=== PATIENT | female | born 2000 | race Caucasian/White ===

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

== ENCOUNTER → 2020-01-10 | Outpatient (CLI) | payer MEDICAID ==
--- NOTE | 2020-01-10 12:17 | Diagnostic Imaging Report ---
INDICATION: Follow-up 4 chamber heart. TECHNIQUE: Multiple real-time grayscale images were obtained over the gravid uterus. COMPARISON: 12/27/2019. FINDINGS: There is a single live fetus in a cephalic presentation. heart rate was recorded at 152 bpm. Placenta is posterior. Amniotic fluid volume appears normal. Limited survey demonstrates a four-chamber heart view on today's study which is unremarkable. IMPRESSION: Unremarkable limited study demonstrating the four-chamber heart view. Dictated by: Dictated on workstation # [id number]
== END ==
LOC: RAD 09:54
PROVIDERS: ATTEND Family Medicine
DX: Z36.2 Encounter for other antenatal screening follow-up (principal)
CPT/HCPCS: 76816

== ENCOUNTER 2020-04-28 18:49 | Inpatient (IN) | payer MEDICAID ==
[~2020-04-28] VITALS: Ht 167.7 cm; Wt 136.3 kg
--- NOTE | 2020-04-28 18:45 | NUR ---
ALESSANDRO DONIS presented to unit from home, accompanied by support person, with c/o INDUCTION. ALESSANDRO DONIS weighed, gowned, voided, and to bed. EFHM and TOCO applied, VS taken. ALESSANDRO DONIS oriented to bed controls, call light, TV, heat, and A/C controls.
[~2020-04-28 18:49] MED LIST changes: -CETI10TA21 PO; +CETI10TA49 PO
[2020-04-28] MEDS ORDERED: MEPIVACAINE (CARBOCAINE) 2% 50 ML VIAL INJ PRN (19:00)
[2020-04-28] MEDS ORDERED: D5 LR IV SOLUTION 1,000 ML IV SCH (19:00)
[2020-04-28] MEDS ORDERED: D5 LR IV SOLUTION 1,000 ML IV ONE (19:40)
[2020-04-28 19:50] VITALS: BP 126/75
[2020-04-28] MEDS ORDERED: AMPICILLIN FOR IV USE 2,000 MG in WATER (STERILE) FOR INJECTION 14.8 ML IV SCH (20:00)
[2020-04-28] MEDS ORDERED: WATER (STERILE) FOR INJECTION 20 ML ONE (20:01)
[2020-04-28] MEDS ORDERED: AMPICILLIN 2,000 MG/14.8 ML (IV USE) ONE (20:01)
[2020-04-28 20:06] LABS: BASOPHILS % (AUTO) 0 % (0-10); EOSINOPHILS # (AUTO) 0.1 10^3/uL (0.0-0.3); EOSINOPHILS % (AUTO) 1 % (0-10); HEMATOCRIT 38 % (35-52); HEMOGLOBIN 12.8 g/dL (11.5-16.0); LYMPHOCYTES # (AUTO) 2.6 10^3/uL (1.0-4.0); LYMPHOCYTES % (AUTO) 25 % (12-44); MEAN CORPUSCULAR HEMOGLOBIN 30 pg (25-34); MEAN CORPUSCULAR HGB CONC 34 g/dL (32-36); MEAN CORPUSCULAR VOLUME 87 fL (80-99); MEAN PLATELET VOLUME 10.4 fL (9.0-12.2); MONOCYTES # (AUTO) 0.9 10^3/uL (0.0-1.0); MONOCYTES % (AUTO) 9 % (0-12); NEUTROPHILS # (AUTO) 6.8 10^3/uL (1.8-7.8); NEUTROPHILS % (AUTO) 65 % (42-75); PLATELET COUNT 218 10^3/uL (130-400); WHITE BLOOD COUNT 10.5 10^3/uL (4.3-11.0)
[2020-04-28] MEDS: AMPICILLIN FOR IV USE 1,000 MG in WATER (STERILE) FOR INJECTION 7.4 ML IV SCH (20:09)
[2020-04-28] MEDS ORDERED: LACTATED RINGERS 1,000 ML IV SCH (20:53)
[2020-04-28] MEDS ORDERED: MISOPROSTOL 100 MCG (CYTOTEC) TAB ONE (20:55)
[2020-04-28] MEDS ORDERED: MISOPROSTOL 100 MCG (CYTOTEC) TAB PO ONE (21:00)
[2020-04-28 21:30] VITALS: BP 118/75
[2020-04-28] MEDS ORDERED: VALA500T7 PO (21:35)
[2020-04-28] MEDS ORDERED: PREN-142 PO (21:36)
[2020-04-28] MEDS ORDERED: CATHETER FLUSH 10 ML SYR IV SCH (22:00)
[2020-04-29] VITALS (29 sets, daily range): BP systolic 100–171; BP diastolic 52–89
[2020-04-29] MEDS: AMPICILLIN FOR IV USE 1,000 MG in WATER (STERILE) FOR INJECTION 7.4 ML IV SCH (00:29)
[2020-04-29] MEDS ORDERED: MISOPROSTOL 100 MCG (CYTOTEC) TAB PO SCH (01:00)
[2020-04-29] MEDS: LACTATED RINGERS 1,000 ML IV ONE ×2 (01:05→03:31)
[2020-04-29] MEDS ORDERED: fentaNYL 2 mcg/ml BUPIVA 0.125 100 ML ONE (01:09)
[2020-04-29] MEDS ORDERED: BUPIVACAINE 0.25% 30 ML (SENSORCAINE) VIAL ONE (01:50)
[2020-04-29] MEDS ORDERED: fentaNYL INJECTION 100 MCG/2 ML AMP ONE (01:50)
[2020-04-29] MEDS ORDERED: fentaNYL 2 mcg/ml BUPIVA 0.125 100 ML IV SCH (01:54)
[2020-04-29] MEDS ORDERED: NALOXONE 0.4 MG/ML 1 ML (NARCAN) VIAL IV PRN (02:00)
[2020-04-29] MEDS ORDERED: CATHETER FLUSH 10 ML SYR IV PRN (02:00)
--- NOTE | 2020-04-29 03:29 | History & Physical-OB ---
OB - Chief Complaint & HPI Date/Time Date of Admission: Date of Admission: Apr 28, 2020 at 18:49 Date seen by a Provider: Apr 29, 2020 Time Seen by a Provider: 03:20 Chief Complaint/History OB-Reason for Admission/Chief: Induction of Labor Hx : 2 Hx Para: 1 Expected Date of Delivery: May 06, 2020 Gestational Age in Weeks: 38 Gestational Age in Days: 6 Admission Nurse Assessment Rev: Yes History of Labs GBS positive Allergies and Home Medications Allergies Coded Allergies: No Known Drug Allergies (Unverified , 04/01/15) Home Medications Vit No.124/Iron/FA 1 Each Tablet, 1 EACH PO DAILY, (Reported) Valacyclovir HCl 500 Mg Tablet, 500 MG PO DAILY, (Reported) Patient Home Medication List Home Medication List Reviewed: Yes OB - History Hx of Present Care: Yes Ultrasounds: Normal mid trimester US Obstetrical Complications: None Medical Complications: None Delivery History Hx Blood Disorders: No Adverse Rxn to Tranfusion: No Patient Past Medical History No chronic medical problems Social History/Family History HIV/AIDS: No Recent Infectious Disease Expo: No Sexually Transmitted Disease: Yes Alcohol Use: Denies Use Recreational Drug Use: No 2nd Hand Smoke Exposure: Yes Immunizations Tetanus Booster (TDap): More than 5yrs OB - Admission Exam Physical Exam Vitals: Vital Signs 04/28/20 04/29/20 04/29/20 04/29/20 19:50 00:30 02:10 02:15 Temp 36.6 Pulse 106 Resp 18 B/P (MAP) 138/80 (99) Pulse Ox 100 O2 Delivery Room Air HEENT: Moist Membranes Heart: Rhythm Normal Lungs: Clear Labs Laboratory Tests Test 04/28/20 19:30 04/28/20 19:50 Range/Units White Blood Count 10.5 4.3-11.0 10^3/uL Red Blood Count 4.34 3.80-5.11 10^6/uL Hemoglobin 12.8 11.5-16.0 g/dL Hematocrit 38 35-52 % Mean Corpuscular Volume 87 80-99 fL Mean Corpuscular Hemoglobin 30 25-34 pg Mean Corpuscular Hemoglobin Concent 34 32-36 g/dL Red Cell Distribution Width 13.6 10.0-14.5 % Platelet Count 218 130-400 10^3/uL Mean Platelet Volume 10.4 9.0-12.2 fL Immature Granulocyte % (Auto) 0 % Neutrophils (%) (Auto) 65 42-75 % Lymphocytes (%) (Auto) 25 12-44 % Monocytes (%) (Auto) 9 0-12 % Eosinophils (%) (Auto) 1 0-10 % Basophils (%) (Auto) 0 0-10 % Neutrophils # (Auto) 6.8 1.8-7.8 10^3/uL Lymphocytes # (Auto) 2.6 1.0-4.0 10^3/uL Monocytes # (Auto) 0.9 0.0-1.0 10^3/uL Eosinophils # (Auto) 0.1 0.0-0.3 10^3/uL Basophils # (Auto) 0.0 0.0-0.1 10^3/uL Immature Granulocyte # (Auto) 0.0 0.0-0.1 10^3/uL OB - Assessment/Plan/Diagnosis Assessment Assessment: induction of labor Admission Dx 1. IUP at 39 weeks Admission Status: Inpatient Order (span 2 midnights) Reason for Inpatient Admission: L&D Plan Plan: Induction Induction Method: per Misoprostol Protocol Other Plan -desires epidural YUMIKO CASTILLO MD Apr 29, 2020 03:29
[2020-04-29] MEDS ORDERED: OXYTOCIN PRE-MIX DRIP 500 ML IV SCH ×2 (04:09→06:00)
--- NOTE | 2020-04-29 04:09 | OB Labor & Delivery Record ---
L&D History Date of Service Date of Service: Apr 29, 2020 History Expected Date of Delivery: May 06, 2020 Gestational Age in Weeks: 38 Hx : 2 Hx Para: 1 Complications Events: Routine care Operative Indications (Cesarea: N/A-Vaginal Delivery Intrapartal Events: None Other Complications GBS positive treated with Ampicillin L&D Stage1 Stage One Onset of Labor - Date: Apr 29, 2020 Onset of Labor - Time: 00:30 Monitors and Tracing Monitor Mode: External Heart Rate: 130 Monitor Accelerations: Uniform Monitor Decelerations: Variable Strap Buckler Variability: Average (6-10) Short Term Variability: Present Presentation: Vertex Vital Signs VS - Last 72 Hours, by Label 04/28/20 04/28/20 04/29/20 04/29/20 19:50 21:30 00:30 01:00 Temp 36.5 36.6 Pulse 99 91 99 Resp 18 B/P (MAP) 118/75 (89) 122/58 (79) Pulse Ox 99 O2 Delivery Room Air 04/29/20 04/29/20 04/29/20 04/29/20 01:30 02:00 02:05 02:10 Pulse 109 100 102 Resp 18 B/P (MAP) 171/84 (113) 131/87 (102) 138/80 (99) Pulse Ox 98 98 99 04/29/20 02:15 Pulse 106 Resp 18 B/P (MAP) Pulse Ox 100 Signs of Distress by FHT Signs of Distress no Rupture of Membranes Spontaneous Ruture of Membrane: Yes Amniotic Membrane Fluid Desc.: Clear Vaginal Bleeding Description: None Induction/Anesthesia Epidural Cath Placement - Time: 01:00 L&D Stage2 Stage Two Stage II Date: Apr 29, 2020 Stage II Time: 03:50 Monitors and Tracing Monitor Mode: External Heart Rate: 130 Monitor Accelerations: Uniform Monitor Decelerations: Variable Strap Buckler Variability: Average (6-10) Position: Left Occiput Anterior Presentation: Vertex Signs of Distress by FHT Signs of Distress no Cord Descript/Complications Cord Vessel Description: 3 Vessels Delivery Type Delivery Method: Spontaneous Vaginal Anterior Shoulder: Left Episiotomy/Perineal Laceration Laceraction(s)/Extensions: Yes Episiotomy Description: Perineal Extension/lac, 1st degree Sutures Used: Vicryl (1 stitch) Condition of Infant Delivery 1 minute Comment: 8 5 minute Comment: 9 Condition of Infant Condition of Infant: Living Exam: No Observed Abnormalities Resuscitation Resuscitation: N/A - Spontaneous Resp L&D Stage3 Stage Three Stage III Date: Apr 29, 2020 Stage III Time: 03:56 Pictocin Pitocin ml/hr: 125 Placenta Delivery Placenta Delivery: Spontaneous Delivery Summary Summary Estimated blood loss (mL): 150 Condition of Delivery Examined: Cervix Examined Post Hemorrhage: No Intervention Required none YUMIKO CASTILLO MD Apr 29, 2020 04:09
[2020-04-29] MEDS ORDERED: TETANUS,DIPTH,PERTUSS P/F (BOOSTRIX) 0.5 ML VIAL IM ONE (04:15)
[2020-04-29] MEDS ORDERED: WITCH HAZEL(TUCKS) 40 EA JAR TOP PRN (04:15)
[2020-04-29] MEDS ORDERED: BENZOCAINE/MENTHOL (DERMOPLAST) 60 ML CAN TP PRN (04:15)
[2020-04-29] MEDS ORDERED: MEASLES,MUMPS,RUBELLA 1 EA INJ SQ ONE (04:15)
[2020-04-29] MEDS ORDERED: CATHETER FLUSH 10 ML SYR IV SCH (06:00)
[2020-04-29] MEDS: IBUPROFEN 600 MG (MOTRIN) TAB PO SCH ×3 (07:36→18:53)
[2020-04-29] MEDS: ACETAMINOPHEN 500 MG TAB (TYLENOL) PO SCH ×3 (07:37→18:53)
--- NOTE | 2020-04-29 07:40 | NUR ---
assisted up to BR. + void. eliezer-care offered. v-pad and panties in place.
--- NOTE | 2020-04-29 07:48 | NUR ---
pt ambulated to room 309 with this RN and infant @ side. pt stable with no c/o's. voiced. familiarized with room surroundings. call light with in reach.
--- NOTE | 2020-04-29 10:53 | NUR ---
report given to Delphine RN
[2020-04-29] MEDS: DOCUSATE SODIUM 100 MG (COLACE) CAP PO SCH ×2 (10:56→20:25)
--- NOTE | 2020-04-29 16:30 | NUR ---
Report rec'd from Hakn Linton RN
[2020-04-30 00:57] VITALS: BP 121/74
[2020-04-30] MEDS: IBUPROFEN 600 MG (MOTRIN) TAB PO SCH ×2 (00:58→07:03)
[2020-04-30] MEDS: ACETAMINOPHEN 500 MG TAB (TYLENOL) PO SCH ×2 (00:59→07:03)
[2020-04-30 04:50] VITALS: BP 108/59
[2020-04-30 05:41] LABS: BASOPHILS % (AUTO) 0 % (0-10); EOSINOPHILS # (AUTO) 0.2 10^3/uL (0.0-0.3); EOSINOPHILS % (AUTO) 2 % (0-10); HEMATOCRIT 34 % (35-52); HEMOGLOBIN 11.1 g/dL (11.5-16.0); LYMPHOCYTES # (AUTO) 3.7 10^3/uL (1.0-4.0); LYMPHOCYTES % (AUTO) 32 % (12-44); MEAN CORPUSCULAR HEMOGLOBIN 30 pg (25-34); MEAN CORPUSCULAR HGB CONC 33 g/dL (32-36); MEAN CORPUSCULAR VOLUME 90 fL (80-99); MEAN PLATELET VOLUME 10.7 fL (9.0-12.2); MONOCYTES % (AUTO) 9 % (0-12); NEUTROPHILS # (AUTO) 6.8 10^3/uL (1.8-7.8); NEUTROPHILS % (AUTO) 57 % (42-75); PLATELET COUNT 197 10^3/uL (130-400); WHITE BLOOD COUNT 11.8 10^3/uL (4.3-11.0)
--- NOTE | 2020-04-30 07:00 | Discharge Summary ---
Diagnosis/Chief Complaint Date of Admission Apr 28, 2020 at 18:49 Date of Discharge April 30, 2020 Discharge Date: Apr 30, 2020 Discharge Time: 10:00 Admission Diagnosis Admission Diagnosis 1. Intrauterine at term 39 weeks gestation Discharge Diagnosis 1. Intrauterine at term 39 weeks gestation Reason Hospital Visit 19-year-old 2 now term 2 who initially presented to labor and delivery during the evening of April 28, 2020 for Cervidil ripening. Her EDC is noted be May 06, 2020. Her care was essentially unremarkable. She did have positive GBS status at 36 weeks gestation. Discharge Summary-OBS Procedures 1. Epidural per anesthesia 2. Spontaneous vaginal delivery 3. Repair of minor perineal tear Discharge Physical Examination Allergies: Coded Allergies: No Known Drug Allergies (Unverified , 04/01/15) Vitals & I&Os Vital Signs Date Time Temp Pulse Resp B/P (MAP) Pulse Ox O2 Delivery O2 Flow Rate FiO2 04/30/20 04:50 36.5 78 16 108/59 (75) 99 Room Air General Appearance: No Acute Distress Respiratory: Clear to Auscultation Cardiovascular: Regular Rate Abdominal: Soft (wwith uterus firm) Hospital Course Was the Problem List Reviewed?: Yes patient was admitted during the evening of April 28, 2020 for Cytotec induction. She was noted to be 1 cm with presenting part of fetus high. She took 1 dose of Cytotec and was noted to have contraction pattern. Ultimately she quickly dilated to 5 cm during the ticket machine operator of April 29. She receiv ed epidural at this time and tolerated well. She continued to have contraction and went on to completion. She had spontaneous rupture of membranes and deliver spontaneous vaginal over a intact perineum except for a minor perineal laceration a term viable male. Delivery was accomplished on April 29, 2020 at 03 50. Following delivery patient underwent routine care orders. She had no complications during the remainder of hospital stay. She tolerated regular diet. She was ambulatory without shortness of breath or leg pain. Her hemoglobin on admission was 12.8 compared to day after delivery of 11.1. She was felt ready for dismissal during the morning of April 30, 2020. Pending Labs Laboratory Tests 04/30/20 05:20: White Blood Count 11.8, Red Blood Count 3.75, Hemoglobin 11.1, Hematocrit 34, Mean Corpuscular Volume 90, Mean Corpuscular Hemoglobin 30, Mean Corpuscular Hemoglobin Concent 33, Red Cell Distribution Width 13.9, Platelet Count 197, Mean Platelet Volume 10.7, Immature Granulocyte % (Auto) 0, Neutrophils (%) (Auto) 57, Lymphocytes (%) (Auto) 32, Monocytes (%) (Auto) 9, Eosinophils (%) (Auto) 2, Basophils (%) (Auto) 0, Neutrophils # (Auto) 6.8, Lymphocytes # (Auto) 3.7, Monocytes # (Auto) 1.0, Eosinophils # (Auto) 0.2, Basophils # (Auto) 0.0, Immature Granulocyte # (Auto) 0.0 Discharge Instructions to patient/family Please see electronic discharge instructions given to patient. Discharge Medications Reviewed and agree with Discharge Medication list on patient's Discharge Instruction sheet Clinical Quality Measures DVT/VTE Risk/Contraindication: Risk Factor Score Per Nursin RFS Level Per Nursing on Admit: 2=Moderate YUMIKO CASTILLO MD Apr 30, 2020 07:00
[2020-04-30] MEDS ORDERED: IBUP-844 PO (07:01)
--- NOTE | 2020-04-30 07:02 | Discharge Inst-Women's Service ---
Discharge Inst-Women's Serv Depart Medication/Instructions New, Converted or Re-Newed RX: Transmitted to Pharmacy ([facility]) Problems Reviewed?: Yes Consults/Follow Up Additional Follow Up: Yes (Dr. Castillo in 6 weeks) Activity Activity: Activity as Tolerated Driving Instructions: No Driving for 1 Week Nothing Inside Vagina: No [place] (for 6 weeks) Diet Discharge Diet: Regular Diet Return to The Hospital For: as below Symptoms to Report to : Bleeding Excessive, Fever Over 101 Degrees F, Vaginal Discharge Foul For Any Problems or Questions: Contact Your Physician YUMIKO CASTILLO MD Apr 30, 2020 07:02
[2020-04-30] MEDS: DOCUSATE SODIUM 100 MG (COLACE) CAP PO SCH (08:46)
[2020-04-30 08:48] VITALS: BP 112/73
--- NOTE | 2020-04-30 08:48 | NUR ---
initial shift assessment completed, see interventions for further. POC reviewed, states understanding.
--- NOTE | 2020-04-30 08:51 | NUR ---
dismissal instructions given, verbalizes understanding. reviewed D/C medications, dosage, & frequency. instructed pt to schedule [address] appointment with Dr Bhat. signature page signed, placed on chart.
--- NOTE | 2020-04-30 09:17 | Anesthesia-Regional Post-Op ---
Regional Patient Condition Mental Status: Alert, Oriented x3 Circulation: Same as Pre-Op Headache: Absent Sensation: Full Recovery Motor Block: Absent Post Op Complications Complications None Follow Up Care/Instructions Patient Instructions None needed. Anesthesia/Patient Condition Patient is doing well, no complaints, stable vital signs, no apparent adverse anesthesia problems. No complications reported per nursing. ROGER AYERS CRNA Apr 30, 2020 09:17
--- NOTE | 2020-04-30 10:20 | NUR ---
pt ambulated to private vehicle with ALEENA Sutton and @ side. secured in rear facing car seat. pt stable with no sx's of distress noted.
== END 2020-04-30 10:20 | disposition home or self-care (01) | DRG 807 ==
LOC: LDRP 18:49
PROVIDERS: ADMIT Family Medicine; ATTEND Family Medicine
PROC: 10E0XZZ Delivery of Products of Conception, External Approach (ICD-10-PCS; principal; 2020-04-29)
PROC: 0HQ9XZZ Repair Perineum Skin, External Approach (ICD-10-PCS; 2020-04-29)
PROC: 3E033VJ Introduction of Other Hormone into Peripheral Vein, Percutaneous Approach (ICD-10-PCS; 2020-04-29)
DX: O99.824 Streptococcus B carrier state complicating childbirth (principal); Z37.0 Single live birth; O70.0 First degree perineal laceration during delivery; Z3A.38 38 weeks gestation of pregnancy
CPT/HCPCS: 36415; 85025; 86850; 86900; 86901; 87635

== ENCOUNTER 2020-08-10 04:59 | Emergency (ER) | payer MEDICAID, OTHER ==
[~2020-08-10] VITALS: Ht 167.7 cm; Wt 126.0 kg
[~2020-08-10 04:59] MED LIST changes: +IBUP-844 PO; +PREN-142 PO; +SERT-412 PO; -SERT25TA5 PO; +VALA500T7 PO
[2020-08-10 05:01] VITALS: BP 150/117
--- NOTE | 2020-08-10 05:20 | ED Abdominal Pain ---
General Chief Complaint: Abdominal/GI Problems Stated Complaint: ABDOMINAL PAIN History of Present Illness Date Seen by Provider: Aug 10, 2020 Time Seen by Provider: 05:10 Initial Comments 20-year-old female presents via EMS to the ER with abdominal pain since 2:00 this morning. States she has a known history of gallbladder disease beginning 7 months ago while she was still in her second trimester of . She had an ultrasound showing she had a gallbladder infection according to the patient. She was treated conservatively and eventually the pain went away. Since her child was born she has had intermittent abdominal pain which has been gradually getting worse. This morning she believes her pain was due to eating [place] fries last night. She has had nausea without vomiting Allergies and Home Medications Allergies Coded Allergies: No Known Drug Allergies (Unverified , 08/10/20) Patient Home Medication List Home Medication List Reviewed: Yes Review of Systems Review of Systems Constitutional: see HPI; No chills, No fever; malaise EENTM: No Symptoms Reported Respiratory: Denies Cough, Denies Shortness of Air Cardiovascular: Denies Chest Pain, Denies Edema, Denies Lightheadedness Gastrointestinal: Denies Abdomen Distended; Abdominal Pain; Denies Constipated, Denies Diarrhea; Nausea; Denies Vomiting Genitourinary: Denies Burning, Denies Discharge, Denies Drainage, Denies Frequency Musculoskeletal: No back pain, No joint pain, No muscle pain Skin: No change in color, No lesions, No lumps Psychiatric/Neurological: Denies Anxiety, Denies Depressed Past Gzqpaic-Ablzcr-Wvcoog Hx Past Med/Social Hx: Reviewed Nursing Past Med/Soc Hx Physical Exam Vital Signs Vital Signs - First Documented 08/10/20 05:01 Temp 37.0 Pulse 101 Resp 20 B/P (MAP) 150/117 (128) Pulse Ox 97 O2 Delivery Room Air Capillary Refill : Height/Weight/BMI Height: '" Weight: lbs. oz. kg; BMI Method: General Appearance: WD/WN, no apparent distress Respiratory: chest non-tender, lungs clear Cardiovascular: regular rate, rhythm, no edema Gastrointestinal: soft, no organomegaly; No distended, No guarding, No rebound; tenderness (RUQ and epigastric); No hernia, No mass, No hepatomegaly, No spleenomegaly Back: normal inspection, no CVA tenderness Neurologic/Psychiatric: alert, normal mood/affect, oriented x 3 Skin: normal color, warm/dry Progress/Results/Core Measures Results/Orders Lab Results Laboratory Tests Test 08/10/20 05:29 Range/Units White Blood Count 12.1 H 4.3-11.0 10^3/uL Red Blood Count 4.82 4.35-5.85 10^6/uL Hemoglobin 14.1 13.3-17.7 G/DL Hematocrit 42 40-54 % Mean Corpuscular Volume 87 80-99 FL Mean Corpuscular Hemoglobin 29 25-34 PG Mean Corpuscular Hemoglobin Concent 34 32-36 G/DL Red Cell Distribution Width 14.1 10.0-14.5 % Platelet Count 324 130-400 10^3/uL Mean Platelet Volume 9.3 7.4-10.4 FL Neutrophils (%) (Auto) 61 42-75 % Lymphocytes (%) (Auto) 27 12-44 % Monocytes (%) (Auto) 10 0-12 % Eosinophils (%) (Auto) 2 0-10 % Basophils (%) (Auto) 0 0-10 % Neutrophils # (Auto) 7.4 1.8-7.8 X 10^3 Lymphocytes # (Auto) 3.3 1.0-4.0 X 10^3 Monocytes # (Auto) 1.2 H 0.0-1.0 X 10^3 Eosinophils # (Auto) 0.2 0.0-0.3 10^3/uL Basophils # (Auto) 0.0 0.0-0.1 10^3/uL Urine Color YELLOW Urine Clarity SLIGHTLY CLOUDY Urine pH 6.0 5-9 Urine Specific [place] >=1.030 1.016-1.022 Urine Protein TRACE H NEGATIVE Urine Glucose (UA) NEGATIVE NEGATIVE Urine Ketones NEGATIVE NEGATIVE Urine Nitrite NEGATIVE NEGATIVE Urine Bilirubin NEGATIVE NEGATIVE Urine Urobilinogen 1.0 < = 1.0 MG/DL Urine Leukocyte Esterase NEGATIVE NEGATIVE Urine RBC (Auto) NEGATIVE NEGATIVE Urine RBC 0-2 /HPF Urine WBC 5-10 H /HPF Urine Squamous Epithelial Cells 10-25 H /HPF Urine Crystals NONE /LPF Urine Bacteria MODERATE H /HPF Urine Casts NONE /LPF Urine Mucus LARGE H /LPF Urine Culture Indicated YES Urine Test NEGATIVE My Orders Orders - INDERVENMARISSA [place] DO Ed Iv/Invasive Line Start (08/10/20 05:14) Cbc With Automated Diff (08/10/20 05:14) Comprehensive Metabolic Panel (08/10/20 05:14) Lipase (08/10/20 05:14) Urinalysis (08/10/20 05:14) Hcg,Qualitative Urine (08/10/20 05:14) Ketorolac Injection (Toradol Injection) (08/10/20 05:30) Urine Culture (08/10/20 05:29) Medications Given in ED Current Medications Medications Dose Ordered Sig/Charlie Route Start Time Stop Time Status Last Admin Dose Admin Ketorolac Tromethamine 30 mg ONCE ONCE IVP 08/10/20 05:30 08/10/20 05:31 DC 08/10/20 05:37 30 MG Vital Signs/I&O 08/10/20 05:01 Temp 37.0 Pulse 101 Resp 20 B/P (MAP) 150/117 (128) Pulse Ox 97 O2 Delivery Room Air Progress Progress Note : Progress Note Was given 50mcg of Fentanyl by EMS w no relief. 30mg of Toradol in the ER has helped significantly. Labs reviewed with no significant abnl. Patient discharged w plans to f/u w PCP/ surgeon. Departure Impression Primary Impression: Abdominal pain Qualified Codes: R10.11 - Right upper quadrant pain Disposition: HOME, SELF-CARE Condition: Improved Departure-Patient Inst. Decision time for Depature: 06:05 Referrals: NO,LOCAL PHYSICIAN (PCP/Family) Primary Care Physician Patient Instructions: Dietary Fats, POSS GALLSTONE-W/BILIARY COLIC, Severe Abdominal Pain, Adult (DC) Add. Discharge Instructions: Follow up with your Primary Doctor when you return home to discuss seeing a surgeon to remove your gallbladder. Avoid fatty foods to keep from having episodic pain. Go to the nearest ER if you have another episode that does not easily and within a few hours resolve on its own. All discharge instructions reviewed with patient and/or family. Voiced understanding. Scripts Ondansetron (Ondansetron Odt) 4 Mg Tab.rapdis 4 MG PO TID for Nausea, #10 TAB Prov: ROVENSTINE,MARISSA L DO 08/10/20 Ibuprofen (Ibuprofen) 800 Mg Tablet 800 MG PO Q8H PRN for PAIN, #30 TAB 0 Refills Prov: ROVENSTINE,MARISSA L DO 08/10/20 ROVENSTINE,MARISSA L DO Aug 10, 2020 05:20
[2020-08-10] MEDS ORDERED: KETOROLAC 30 MG/ML VIAL IVP ONE ×2 (05:30→06:15)
[2020-08-10 05:47] LABS: BASOPHILS % (AUTO) 0 % (0-10); EOSINOPHILS % (AUTO) 2 % (0-10); HEMATOCRIT 42 % (40-54); HEMOGLOBIN 14.1 G/DL (13.3-17.7); LYMPHOCYTES % (AUTO) 27 % (12-44); MEAN CORPUSCULAR HEMOGLOBIN 29 PG (25-34); MEAN CORPUSCULAR HGB CONC 34 G/DL (32-36); MEAN CORPUSCULAR VOLUME 87 FL (80-99); MEAN PLATELET VOLUME 9.3 FL (7.4-10.4); MONOCYTES % (AUTO) 10 % (0-12); NEUTROPHILS % (AUTO) 61 % (42-75); PLATELET COUNT 324 10^3/uL (130-400); WHITE BLOOD COUNT 12.1 10^3/uL (4.3-11.0)
[2020-08-10 05:48] LABS: EOSINOPHILS # (AUTO) 0.2 10^3/uL (0.0-0.3); LYMPHOCYTES # (AUTO) 3.3 X 10^3 (1.0-4.0); MONOCYTES # (AUTO) 1.2 X 10^3 (0.0-1.0); NEUTROPHILS # (AUTO) 7.4 X 10^3 (1.8-7.8)
[2020-08-10 05:52] LABS: CLARITY,URINE SLIGHTLY CLOUDY; COLOR,URINE YELLOW
[2020-08-10 05:53] LABS: BACTERIA,URINE MODERATE /HPF; BILIRUBIN,URINE NEGATIVE (NEGATIVE); GLUCOSE, URINE (UA) NEGATIVE (NEGATIVE); KETONES,URINE NEGATIVE (NEGATIVE); LEUKOCYTE ESTERASE ,URINE NEGATIVE (NEGATIVE); NITRITE,URINE NEGATIVE (NEGATIVE); PROTEIN,URINE TRACE (NEGATIVE); RBC,URINE 0-2 /HPF
[2020-08-10 06:03] LABS: ALANINE AMINOTRANSFERASE 22 U/L (0-55); ALBUMIN 3.9 GM/DL (3.2-4.5); ALKALINE PHOSPHATASE 81 U/L (40-136); BILIRUBIN,TOTAL 0.2 MG/DL (0.1-1.0); BUN/CREATININE RATIO 14; CALCIUM 9.1 MG/DL (8.5-10.1); CARBON DIOXIDE 21 MMOL/L (21-32); CHLORIDE 106 MMOL/L (98-107); CREATININE SERUM 0.84 MG/DL (0.60-1.30); GFR ESTIMATED > 60; GLUCOSE 102 MG/DL (70-105); LIPASE 24 U/L (8-78); POTASSIUM 4.1 MMOL/L (3.6-5.0); SODIUM 140 MMOL/L (135-145); TOTAL PROTEIN 7.7 GM/DL (6.4-8.2)
[2020-08-10] MEDS ORDERED: IBUP-1780 PO (06:06)
[2020-08-10] MEDS ORDERED: ONDA4TAB11 PO (06:06)
== END 2020-08-10 06:11 | disposition home or self-care (01) ==
LOC: ER FS 05:08 → EDSEX 05:08 → MERGE 05:08 → ER FS 06:11
DX: R10.13 Epigastric pain (principal); Z32.02 Encounter for pregnancy test, result negative
CPT/HCPCS: 36415; 80053; 81000; 83690; 84703; 85025; 87088